=== PATIENT | female | born 1930 | race Caucasian/White ===

== ENCOUNTER 2016-10-05 06:58 | Day surgery (SDC) | payer MEDICARE, OTHER, MEDICAID ==
[~2016-10-05 06:58] MED LIST: AMITRIPTYLINE 550 MG PO; AMLO5TAB PO; CIPRO 250MG TA250 MG PO; DOXYCYCLINE100 M1 PO; FENOFIBRATE160 MG PO; FISH OIL1000 MG PO; HYDROCHLOROTHIA25 M1 PO; LEVAQUIN250 MG PO; LOSARTAN POTASS50 MG PO; METFORMIN500 MG PO; METOPROLOL SUCC50 M1 PO; METOPROLOL TAR100 MG PO; METOPROLOL TART50 MG PO; NORCO 325 MG-51 TAB PO; PRAVASTATIN 40M40 MG PO; PYRIDIUM100 M1 PO
--- NOTE | 2016-10-05 08:27 | Operative Note ---
Upper GI Endoscopy Procedure date: 10/05/16 Date of : 34 Procedure:Upper GI Endoscopy Esophagogastroduodenoscopy with cold biopsies Indications: Mrs. Chan is an 86-year-old female who is here for further evaluation of her melanotic stool and anemia. Her recent hemoglobin and hematocrit were 9.9 and 29.7. The patient does have some generalized abdominal discomfort. She has also had some diarrhea. The patient had a colonoscopy in April 2009 (Dr. Lance Aranda) showing mild left-sided diverticulosis but no further findings. She had a colonoscopy by me in 2004 at which time colon polyps were removed. She reports no use of aspirin, anticoagulation or nonsteroidal anti-inflammatory drugs. She will take Advil occasionally for a headache. Performing Provider: Terrence Jaime MD Referring Provider: Angelo Young M.D. Sedation: Fentanyl 50 mg IV/Versed 4 mg IV Procedure: Prior to the procedure, a history and physical exam was performed, and patients medications and allergies were reviewed. The risks and benefits of the procedure and the sedation options and risks were discussed with the patient. All questions were answered and informed consent was obtained. The patient was brought to the procedure room. Patient identification and proposed procedure were verified by the physician and the nurse. The patient was placed in a left lateral decubitus position and the scope was passed under direct vision. Throughout the procedure, the patient's blood pressure, pulse, and oxygen saturations were monitored continuously. The endoscope was introduced through the mouth, and advanced to the second part of duodenum. The upper GI endoscopy was accomplished without difficulty. The patient tolerated the procedure well. Findings: The scope was passed directly into the upper esophagus and advanced to the third portion of the duodenum. The post bulbar duodenum and duodenal bulb were normal with normal mucosa and conniventes. There was a duodenal diverticulum in the second portion of the duodenum. The scope was withdrawn through a normal duodenal bulb and pylorus into the stomach. There was some linear erythema of the antrum with some erosions. There was gastric atrophy of the body and fundus of the stomach. Upon retroflexion there was a 3 cm hiatal hernia. There were slight linear Poncho's erosions. 4 biopsies were taken from the antrum and also from the fundus for histology. The scope was then withdrawn into the esophagus. There was a serrated Z line with a couple of tongues of salmon-colored mucosa that were biopsied to exclude intestinal metaplasia/short segment Heard's esophagus. 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 Immediate complications: None EBL (ml): 0 Impression: 1. Nonerosive gastroesophageal reflux disease with 3 cm hiatal hernia 2. Linear erosive antritis 3. Chronic atrophic gastritis 4. Duodenal diverticulum Recommendations: I did not see any source of melena from the upper digestive tract. I do feel that her anemia may be related to the erosive gastritis/slight Poncho's erosions. I will follow up the gastric and esophageal biopsies. I will proceed with diagnostic colonoscopy. at [id number]
--- NOTE | 2016-10-05 08:46 | Operative Note ---
Colonoscopy ([facility]) Procedure date: 10/05/16 Date of : 34 Procedure:Colonoscopy Colonoscopy with cold snare polypectomy Indications: Mrs. Chan is an 86-year-old female who is here for further evaluation of her melanotic stool and anemia. Her recent hemoglobin and hematocrit were 9.9 and 29.7. The patient does have some generalized abdominal discomfort. She has also had some diarrhea. The patient had a colonoscopy in April 2009 (Dr. Lance Aranda) showing mild left-sided diverticulosis but no further findings. She had a colonoscopy by me in 2004 at which time colon polyps were removed. She reports no use of aspirin, anticoagulation or nonsteroidal anti-inflammatory drugs. She will take Advil occasionally for a headache. The patient has had primary breast, lung and cervical cancer previously. Performing Provider: Terrence Jaime MD Referrring Provider: Angelo Young M.D. Sedation: Fentanyl 100 mg IV/Versed 5 mg IV (total sedation for EGD and colonoscopy) Procedure: Prior to the procedure, a history and physical exam was performed, and patient medications and allergies were reviewed. The risks and benefits of the procedure and the sedation options and risks were discussed with the patient. All questions were answered and informed consent was obtained. Patient identification and proposed procedure were verified by the physician and the nurse. The patient was placed in a left lateral decubitus position. Throughout the procedure, the patient's blood pressure, pulse, and oxygen saturations were monitored continuously. Findings: On digital rectal examination there was normal rectal tone. There were no external hemorrhoids. The colonoscope was introduced through the anal canal to the rectum and advanced to the cecum. The ileocecal valve and appendiceal orifice were identified. The scope was advanced a short distance into the ileum which appeared grossly normal. The scope was then withdrawn into the colon. The cecum, ascending and transverse colon and mucosa were grossly normal. There were extensive scattered diverticuli throughout the descending and sigmoid colon ( LEFT colon). There appeared to be somehow still edema and erythema in the sigmoid colon from possible chronic sigmoid diverticulitis. There appeared to be possible radiation change within the sigmoid colon possibly from prior cervical cancer treatment. There was a single flat 10-11 mm polyp at the rectosigmoid junction removed via cold snare polypectomy Upon retroflexion within the rectum there were grade 1 internal hemorrhoids. Impressions: 1. Rectosigmoid polyp 2. 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 Grade 1 internal hemorrhoids Recommendations: I will follow up the polyp histology. There was no clear source of bleeding from the lower digestive tract. I will obtain fecal Hemoccult and iron studies. If the patient is strongly Hemoccult-positive, I would consider video capsule enteroscopy. The patient will not require further surveillance colonoscopy. Complications: None EBL (ml): 0 at 0845
[2016-10-05 10:12] LABS: HEMOGLOBIN 10.4 g/dL (12.2-16.2); LYMPH # 1.1 K/mm3 (0.7-4.5); LYMPH % 28.7 % (10-50.0)
[2016-10-05 14:39] VITALS: BP 158/54
[2016-10-06 08:44] LABS: Iron 73 ug/dL (27-139); Iron Saturation 25 % (15-55); UIBC 217 ug/dL (118-369)
== END 2016-10-05 09:55 | disposition home or self-care (01) ==
LOC: SDC 06:58
PROVIDERS: Internal Medicine Gastroenterology
PROC: 0DB58ZX Excision of Esophagus, Via Natural or Artificial Opening Endoscopic, Diagnostic (ICD-10-PCS; 2016-10-05)
PROC: 0DB78ZX Excision of Stomach, Pylorus, Via Natural or Artificial Opening Endoscopic, Diagnostic (ICD-10-PCS; 2016-10-05)
PROC: 0DBN8ZX Excision of Sigmoid Colon, Via Natural or Artificial Opening Endoscopic, Diagnostic (ICD-10-PCS; principal; 2016-10-05 14:30)
DX: D12.7 Benign neoplasm of rectosigmoid junction (principal); K57.32 Diverticulitis of large intestine without perforation or abscess without bleeding; K64.0 First degree hemorrhoids; Z86.010 Personal history of colon polyps; Z85.3 Personal history of malignant neoplasm of breast; Z85.118 Personal history of other malignant neoplasm of bronchus and lung; Z85.41 Personal history of malignant neoplasm of cervix uteri; K52.0 Gastroenteritis and colitis due to radiation; Y84.2 Radiological procedure and radiotherapy as the cause of abnormal reaction of the patient, or of later complication, without mention of misadventure at the time of the procedure; K92.1 Melena; K21.9 Gastro-esophageal reflux disease without esophagitis; K44.9 Diaphragmatic hernia without obstruction or gangrene; K29.60 Other gastritis without bleeding; K29.40 Chronic atrophic gastritis without bleeding; K57.10 Diverticulosis of small intestine without perforation or abscess without bleeding; E11.9 Type 2 diabetes mellitus without complications

== ENCOUNTER → 2016-10-08 | Outpatient (CLI) | payer MEDICARE, OTHER, MEDICAID ==
[2016-10-08 13:35] LABS: STOOL OCCULT BLOOD NEGATIVE (NEG)
== END ==
LOC: LAB 12:29
PROVIDERS: Internal Medicine Gastroenterology
DX: K92.1 Melena (principal); D64.9 Anemia, unspecified